=== PATIENT | female | born 1945 | race Asian ===

== ENCOUNTER 2018-10-01 16:09 | Emergency (ER) | payer MEDICARE, MEDICAID ==
[~2018-10-01] VITALS: Ht 165.1 cm; Wt 68.0 kg
--- NOTE | 2018-10-01 16:22 | NUR ---
Spoke with Nichelle at [facility] ([phone]) who stated she will fax pt's medical records as there was no medical history or procedure information sent with the pt.
[2018-10-01 16:30] VITALS: BP 135/70
[2018-10-01] MEDS ORDERED: ASPIRIN 325 MG TABLET PO ONE (16:30)
[2018-10-01] MEDS ORDERED: NITROGLYCERIN 0.4 MG/TAB BOTTLE SL ONE ×2 (16:30→16:33)
[2018-10-01] MEDS ORDERED: IV NORMAL SALINE 1000 ML BAG IV ONE (16:30)
[2018-10-01] MEDS ORDERED: ASPIRIN 325 MG TABLET ONE (16:33)
[2018-10-01] MEDS ORDERED: ANAS1TAB8 PO (16:48)
[2018-10-01] MEDS ORDERED: FENO160T PO (16:48)
[2018-10-01] MEDS ORDERED: FLUT16SP NS (16:48)
[2018-10-01] MEDS ORDERED: OMEP40CA37 PO (16:48)
[2018-10-01] MEDS ORDERED: ATOR10TA PO (16:48)
[2018-10-01] MEDS ORDERED: AMLO2.5T4 PO (16:48)
[2018-10-01] MEDS ORDERED: TOBR5DRO48 OP (16:48)
[2018-10-01] MEDS ORDERED: CALC-555 PO (16:48)
[2018-10-01] MEDS ORDERED: RANI150T8 PO (16:48)
[2018-10-01] MEDS ORDERED: LIDO30AD10 TD (16:48)
[2018-10-01] MEDS ORDERED: ASPI-1169 PO (16:48)
[2018-10-01 16:50] LABS: BASOPHILS % (AUTO) 0.7 % (0.0-2.0); EOSINOPHILS % (AUTO) 0.1 % (0.0-7.0); HEMATOCRIT 34.4 % (31.2-41.9); HEMOGLOBIN 11.5 g/dL (10.9-14.3); LYMPHOCYTES # (AUTO) 0.6 K/uL (20.0-40.0); LYMPHOCYTES % (AUTO) 17.1 % (20.5-51.5); MEAN CORPUSCULAR HEMOGLOBIN 32.5 uug (24.7-32.8); MEAN CORPUSCULAR HGB CONC 34 g/dL (32.3-35.6); MEAN CORPUSCULAR VOLUME 96.8 fL (75.5-95.3); MONOCYTES % (AUTO) 1.2 % (0.0-11.0); NEUTROPHILS # (AUTO) 2.6 K/uL (1.8-8.9); NEUTROPHILS % (AUTO) 80.9 % (38.5-71.5); PLATELET COUNT (AUTO) 124 K/uL (179-408); RED BLOOD CELL COUNT(AUTO) 3.56 MIL/uL (3.63-4.92); WHITE BLOOD COUNT (AUTO) 3.2 K/uL (3.8-11.8)
[2018-10-01 16:57] LABS: CARBON DIOXIDE 24 mmol/L (21-32); CHLORIDE 107 mmol/L (98-107); CREATININE 0.9 mg/dL (0.6-1.3); GLUCOSE 120 mg/dL (74-106); POTASSIUM 3.8 mmol/L (3.5-5.1); UREA NITROGEN, BLOOD 19 mg/dL (7-18)
[2018-10-01 17:09] LABS: ALANINE AMINOTRANSFERASE 40 U/L (14-59); ALKALINE PHOSPHATASE 50 U/L (50-136); ASPARTATE AMINOTRANSFERASE 45 U/L (15-37); BILIRUBIN,DIRECT 0.3 mg/dL (0.0-0.2); BILIRUBIN,TOTAL 0.7 mg/dL (0.2-1.0); TOTAL PROTEIN, SERUM 6.7 g/dL (6.4-8.2)
--- NOTE | 2018-10-01 17:29 | NUR ---
Patient does not want to be admitted. Spouse is at bedside. Patient's daughter is coming to pick them up. MD notified.
--- NOTE | 2018-10-01 18:28 | NUR ---
IV removed. Catheter intact and site benign. Pressure and 4x4 gauze applied to site. No bleeding noted. With [place] official court interpreter TENA Novoa, this patient still does not wish to proceed with medical care recommended by Dr. Mahoney. Patient and family were given information related to possible complications, up to and including , which could occur as a result of leaving the hospital at this time. Patient and family verbalized understanding of risks involved due to leaving against medical advice. Patient has signed AMA form.
== END 2018-10-01 18:30 | disposition left against medical advice (07) ==
LOC: ER 16:09 → EDSEX 16:09 → ER 18:30
DX: R07.89 Other chest pain (principal); R42 Dizziness and giddiness; Z79.2 Long term (current) use of antibiotics; Z79.82 Long term (current) use of aspirin; Z79.899 Other long term (current) drug therapy
CPT/HCPCS: 36415; 70030-TC; 71045; 85025; 93005; A4663; J7030